=== PATIENT | female | born 1955 | race Caucasian/White ===

== ENCOUNTER 2024-01-17 07:34 | Day surgery (SDC) | payer BC, MEDICARE ==
[2024-01-17] MEDS ORDERED: Propofol 200 MG/20 ML SDV IV ONE (07:35)
[2024-01-17] MEDS ORDERED: Sodium Chloride 0.9% 10 ML Syringe FLUSH PRN (08:19)
[2024-01-17] MEDS: Lactated Ringers 1,000 ML IV SCH (08:31)
[2024-01-17] MEDS: Simethicone Drops 40 MG/0.6 ML 30 ML Bottle ONE (09:06)
[2024-01-17 11:11] VITALS: BP 136/60; PULSE 77
== END 2024-01-17 11:00 | disposition home or self-care (01) ==
LOC: FB.SDS 07:34
PROVIDERS: ATTEND Surgery
DX: Z12.11 Encounter for screening for malignant neoplasm of colon (principal); D12.6 Benign neoplasm of colon, unspecified; K63.5 Polyp of colon; E78.5 Hyperlipidemia, unspecified; K21.9 Gastro-esophageal reflux disease without esophagitis; K31.89 Other diseases of stomach and duodenum; Z79.82 Long term (current) use of aspirin; Z79.899 Other long term (current) drug therapy; Z88.0 Allergy status to penicillin
CPT/HCPCS: 00811; 45380; 45385; 88305; A9270; J2704; J7120